=== PATIENT | male | born 1990 | race Hispanic/Latino ===

== ENCOUNTER 2018-05-08 11:31 | Emergency (ER) | payer OTHER ==
[~2018-05-08] VITALS: Ht 175.3 cm; Wt 163.3 kg
--- NOTE | 2018-05-08 12:34 | RADIOLOGY REPORT ---
EXAMINATION: XR CHEST CLINICAL INFORMATION: Pneumonia. CHF. COMPARISON: None TECHNIQUE: 2 views of the chest were obtained. FINDINGS: No significant abnormality is noted involving the heart, lungs, mediastinum, bony thorax or soft tissues. IMPRESSION: Unremarkable examination.
[2018-05-08 12:38] LABS: ABSOLUTE BASOPHIL COUNT 0.1 /CUMM (0.0-0.2); ABSOLUTE EOSINOPHIL COUNT 0.2 /CUMM (0.0-0.7); ABSOLUTE GRANULOCYTE CT 10.9 /CUMM (1.4-6.5); ABSOLUTE LYMPH COUNT 2.6 /CUMM (1.2-3.4); ABSOLUTE MONOCYTE COUNT 1.1 /CUMM (0.10-0.60); BASOPHIL % 0.4 % (0.0-2.0); EOSINOPHIL % 1.1 % (0-5); GRANULOCYTE % 73.4 % (42.2-75.2); HEMATOCRIT 46.1 % (42-52); MEAN CORPUSCULAR HGB 30.6 PG (27.0-31.0); MEAN CORPUSCULAR HGB CONC 34.8 G/DL (33.0-37.0); MEAN CORPUSCULAR VOLUME 88.1 FL (80.0-94.0); MEAN PLATELET VOLUME 9.4 FL (7.4-10.4); PLATELET COUNT 263 /CUMM (130-400); RBC DISTRIBUTION WIDTH 14.6 % (11.5-14.5); RED BLOOD CELL CT 5.23 /CUMM (4.70-6.10); WHITE BLOOD CELL COUNT 14.9 /CUMM (4.8-10.8)
--- NOTE | 2018-05-08 16:47 | ED CARDIAC/CP/PALPITATIONS ---
History of Present Illness General Chief Complaint: General Adult Stated Complaint: BIBA WITH CHEST PRESSURE Source: patient Exam Limitations: no limitations Vital Signs & Intake/Output Vital Signs & Intake/Output Vital Signs Date Time Temp Pulse Resp B/P B/P Pulse O2 O2 Flow FiO2 Mean Ox Delivery Rate 05/08 1717 84 20 140/85 100 Room Air 05/08 1640 100 Room Air 05/08 1158 98.3 106 18 141/94 97 Room Air Allergies Coded Allergies: Penicillins (Severe, N/V 05/08/18) hydromorphone (From DILAUDID) (Severe, N/V 05/08/18) morphine (Severe, N/V 05/08/18) Triage Note: 27 Y/O MALE BIBA (TO TRIAGE) FOR EVAL OF CHEST PAIN, ONSET THIS AM (1 HOUR AGO) WITH HX [place] 2015. PT STATES HE WAS LYING IN BED WHEN PAIN STARTED. RECEIVED 243 MG ASA EN ROUTE (TAKES 81 MG AT HOME DAILY). ALSO RECEIVED 1 SPRAY NITRO UNDER TONGUE WITH IMPROVEMENT OF PAIN. PT HAD XRAY TAKEN FOR EKG AND BLOOD DRAW AT THIS TIME Triage Nurses Notes Reviewed? yes HPI: Patient presents for evaluation of substernal chest pressure that came upon him abruptly at about 11:30 this morning. Patient states he was lying down at the time. He states he didn't become diaphoretic but his forehead felt a little damp. He did experience mild dyspnea but no associated paresthesias or palpitations. The pain resolved. Past History Travel History Traveled to [place] past 21 day No Medical History Any Pertinent Medical History? see below for history Neurological: NONE EENT: NONE Cardiovascular: hypertension, myocardial infarction, HIGH CHOLESTEROL Respiratory: NONE Gastrointestinal: NONE Hepatic: NONE Renal: NONE Musculoskeletal: NONE Psychiatric: NONE Endocrine: diabetes Blood Disorders: NONE Cancer(s): NONE PRINT FINISHER/Reproductive: NONE Surgical History Surgical History: non-contributory Psychosocial History What is your primary language Vietnamese Tobacco Use: Current Daily Use Daily Tobacco Use Amount/Type: => 5 Cigarettes daily Family History Hx Contributory? No Review of Systems Review of Systems Constitutional: Reports: no symptoms. EENTM: Reports: no symptoms. Respiratory: Reports: no symptoms. Cardiovascular: Reports: chest pain. GI: Reports: no symptoms. Genitourinary: Reports: no symptoms. Musculoskeletal: Reports: no symptoms. Skin: Reports: no symptoms. Neurological/Psychological: Reports: no symptoms. Hematologic/Endocrine: Reports: no symptoms. Immunologic/Allergic: Reports: no symptoms. All Other Systems: Reviewed and Negative Physical Exam Physical Exam Cardiovascular: see below Comments: Gen.: Well-nourished, well-developed, no acute respiratory distress. Overweight. Head: Normocephalic, atraumatic. Eyes: Normal inspection bilaterally Ears: Normal inspection bilaterally Nose: Normal inspection Throat/mouth : Moist mucosa Neck: Supple, full range of motion, no goiter Heart: Regular rate and rhythm, no murmurs rubs or gallops Lungs: Clear to auscultation bilaterally with normal air entry Chest: Nontender Back: Normal range of motion Abdomen: Soft, nontender, nondistended, normal bowel sounds Extremities: Normal range of motion grossly, equal radial pulses, no cyanosis clubbing or edema, calves nontender Neurologic: Cranial nerves grossly intact, speech is clear Skin: warm and dry Psychiatric: Calm, cooperative, no apparent delusions or hallucinations Core Measures ACS in differential dx? No CVA/TIA Diagnosis No Sepsis Present: No Sepsis Focused Exam Completed? No Progress Differential Diagnosis: AMI, musculoskeletal pain, pericarditis, pneumonia, pneumothorax, unstable angina Plan of Care: Orders Procedure Date/time Status TROPONIN LEVEL 05/08 1530 Complete EKG 05/08 1530 Active URINE DRUG SCREEN FOR ER ONLY 05/08 1207 Complete TROPONIN LEVEL 05/08 1137 Complete COMPREHENSIVE METABOLIC PANEL 05/08 1137 Complete CBC WITHOUT DIFFERENTIAL 05/08 1137 Complete EKG 05/08 1137 Active Laboratory Tests 05/08/18 1633: Troponin I < 0.01 05/08/18 1339: Urine Opiates Screen < 100, Methadone Screen < 40, Barbiturate Screen < 60, Ur Phencyclidine Scrn < 6.00, Amphetamines Screen < 100, U Benzodiazepines Scrn < 85, Urine Cocaine Screen < 50, Urine Cannabis Screen < 5.00 05/08/18 1226: Anion Gap 13, Estimated GFR > 60, BUN/Creatinine Ratio 16.3, Glucose 94, Calcium 9.7, Total Bilirubin 0.6, AST 38, ALT 53, Alkaline Phosphatase 98, Troponin I < 0.01, Total Protein 7.8, Albumin 4.5, Globulin 3.3, Albumin/Globulin Ratio 1.4, CBC w Diff NO MAN DIFF REQ, RBC 5.23, MCV 88.1, MCH 30.6, MCHC 34.8, RDW 14.6 H , MPV 9.4, Gran % 73.4, Lymphocytes % 17.5 L, Monocytes % 7.6, Eosinophils % 1.1, Basophils % 0.4, Absolute Granulocytes 10.9 H, Absolute Lymphocytes 2.6, Absolute Monocytes 1.1 H, Absolute Eosinophils 0.2, Absolute Basophils 0.1 Initial ED EKG: NSR, rate (96) Prior EKG: unchanged Repeat EKG: unchanged Comments: 05/08/2018 4:46:18 PM while I was evaluating El schmitz, he stated that his chest pain was "returning". I suspect anxiety as the patient provides a history of this. 05/08/2018 6:10:04 PM I have updated El on test results. He offers no complaint at this time. His blood glucose was slightly low and he has been given a meal, eating without difficulty. Departure Departure Disposition: HOME OR SELF CARE Condition: Stable Clinical Impression Primary Impression: Atypical chest pain Secondary Impressions: Hypoglycemia Referrals: Charley WILDER,Fernando Louie (PCP/Family) Additional Instructions: Follow-up with your digester tomorrow or Saturday for reevaluation of your chest pain syndrome. Notify your primary care doctor of this emergency department visit and treatment plan. Return if any concerns or sudden worsening. Please note that there might be incidental findings in your evaluation that are unrelated to the current emergency department visit. Please notify your primary care doctor about this emergency department visit in order to obtain and review all of the testing performed so that these incidental findings can be monitored as needed. If you had an x-ray performed, please understand that some fractures or other findings may not be seen on the initial set of x-rays. If your symptoms persist you might need a repeat set of x-rays to check for such a fracture. If you had a laceration evaluated, please understand that foreign bodies such as glass or wood may not be visible to the naked eye or on plain x-rays. If the wound becomes red, swollen, increasingly more painful or if there is any drainage from the wound, please have it reevaluated by a physician for the possibility of a retained foreign body. If you're unable to follow up as outlined in the discharge instructions please return to the emergency department. Thank you for choosing the [facility] Emergency Department for your care. It was a pleasure to serve you today. Chris Neely M.D. [facility] Departure Forms: Customer Survey General Discharge Information Critical Care Note Critical Care Note Critical Care Time: non-applicable
[2018-05-08 17:17] VITALS: BP 140/85
== END 2018-05-08 18:18 ==
LOC: ERH 11:31
PROVIDERS: Physician Assistant Medical
DX: R07.89 Other chest pain (principal); E11.649 Type 2 diabetes mellitus with hypoglycemia without coma; I10 Essential (primary) hypertension; I25.2 Old myocardial infarction; E78.00 Pure hypercholesterolemia, unspecified; E11.9 Type 2 diabetes mellitus without complications; F17.210 Nicotine dependence, cigarettes, uncomplicated
CPT/HCPCS: 71046; 80307; 93005; 93010